=== PATIENT | female | born 1940 | race Caucasian/White ===

== ENCOUNTER → 2016-08-13 | Outpatient (CLI) | payer OTHER ==
[~2016-08-13] VITALS: Ht 170.2 cm; Wt 142.0 kg
[~2016-08-13] MED LIST: ALLERGY RELIEF10 M3 PO; ALLOPURINOL 30300 M1 PO; APAP500 PO; ASPIRIN81 M2 PO; CALTRATE PLUS1 EACH PO; CHLORTHALIDONE25 MG PO; CLARITIN10 MG PO; CLONIDINE HCL0.1 MG PO; DULERA 100 MCG/13 GM INH; LISINOPRIL20 MG PO; MOBIC15 MG PO; SIMVASTATIN10 MG PO; SINGULAIR 10 MG10 M1 PO; TRAMADOL 50 MG50 MG PO; VITAMIN C 250250 MG PO; VITAMIN D 5050000 I1 PO; VITAMINC500 PO
--- NOTE | ~2016-08-13 | S ---
[facility] [place] [address] SURGICAL PATH RPT PROCEDURE Name: SOFÍA LEE Room #: REG [facility].#: [id number] Admission: 08/13/16 Date of : 44 Discharge: Report #: [id number] Path Case #: [id number] PATHOLOGY REPORT COLLECTION DATE: 08/13/2016 RECEIVED DATE: 08/14/2016 SUBMITTING PHYS: Dr. Ruben Deng OTHER PHYS: Dr. Tyree Brown SPECIMEN(S) RECEIVED: A.Rectal sigmoid polyp bx B.Rectal ulcer bx * * * * * * * * * * * * FINAL DIAGNOSIS: A. Polyp, rectal sigmoid polyp, endoscopic biopsy: - Hyperplastic polyp. - Negative for dysplasia. B. Large intestine, rectal ulcer, endoscopic biopsy: - Reactive nonspecific changes with focal acute inflammation. - Negative for dysplasia or malignancy. COMMENT: Examination shows hyperplastic crypts, reactive surface epithelium, scattered rare foci of lamina propria fibrosis as well as mild acute inflammation. The findings may be suggestive of focal active colitis, focal active proctitis, acute diverticulitis, or a solitary rectal ulcer. Findings to suggest an inflammatory bowel disease are not identified. Clinical correlation is suggested. (IUV:csd; d/t: 08/15/2016) PATHOLOGIST: Erika Good M.D. REPORT ELECTRONICALLY SIGNED BY: Erika Good M.D. DATE/TIME: 08/15/2016 17:24 * * * * * * * * * * * * GROSS PATHOLOGY: A. Received in formalin labeled "Sofía Lee, rectal sigmoid polyp," are 2 segments of gonzales soft tissue measuring 0.5 x 0.2 x 0.2 cm in aggregate dimensions and ranging from 0.2 to 0.3 cm in maximum dimension. The specimen is submitted entirely in cassette A1. B. Received in formalin labeled "Sofía Lee, rectal ulcer," are 2 segments of gonzales soft tissue measuring 0.4 x 0.2 x 0.2 cm in aggregate dimensions and ranging from 0.1 to 0.3 cm in maximum dimension. The specimen is submitted entirely in cassette B1. (ADY; 08/14/2016) [address] [place] [address] SURGICAL PATH RPT PROCEDURE Name: SOFÍA LEE Room #: [facility]#: [id number] Admission: 08/13/16 Date of : 44 Discharge: Report #: [id number] Path Case #: [id number] CLINICAL HISTORY: Rectal bleeding INITIAL CPT CODE(S): A; 64017 B; 11365 Professional services performed by [facility] at [address] [place], [place] [address] Technical services performed by [facility] at [address] [place] [address], [facility] [address] [address]. [facility] [address] [address] PHONE: [phone] DIRECTOR: Patrick W. Nelly, M.D. * * * END OF REPORT * * *
--- NOTE | ~2016-08-13 | P ---
[facility] [place] [address] PROCEDURE REPORT Name: ROSASOFÍA Lyons Room #: REG [facility]#: [id number] Admission: 08/13/16 Attend Phys: Ruben Son Discharge: Date of : 44 Report #: [id number] THIS REPORT FOR: //name// CC: Ruben Brown MD DATE OF SERVICE: 08/13/2016 PROCEDURE PERFORMED: Colonoscopy with biopsies. HISTORY OF PRESENT ILLNESS: The patient is a 76-year-old female who had an episode of crampy abdominal pain associated with hematochezia on 07/24/2016. Apparently was hospitalized for 3 days, had a CT scan showing inflammation or colitis. I do not have a copy of any of these results. Her last colonoscopy was 20 years ago. There is no family history of colon cancer. She denies any further bleeding. Her bowel movements have been fairly normal lately recently. DESCRIPTION OF PROCEDURE: The risks and benefits of the procedure were explained to the patient, those risks including but not limited to bleeding, perforation, the risk of sedation. She understood these risks and gave informed consent. Sedation was given using propofol per anesthesia. Next, a digital rectal exam was initially performed, which was normal. Next, using a standard Fujinon colonoscope, the scope was placed in the patient's anus and advanced under direct vision to the right colon, at which point, an ileocolonic anastomosis was noted. This was well healed and widely patent. I was able to advance the scope into the ileum, which was normal. The scope was then slowly withdrawn. The remaining transverse and descending colon were normal. Multiple diverticula were noted in the sigmoid colon, no evidence of inflammation. Also noted in the sigmoid was a 4 mm sessile polyp. This was removed with cold forceps. In the rectum, there was a single small 3 mm ulcer. Biopsies were obtained. No other inflammation or ulcerations were noted. There was no bleeding. On retroflexion, small nonbleeding internal hemorrhoids were noted. The scope was then withdrawn and the procedure terminated. The patient tolerated the procedure well. IMPRESSION: 1. Sigmoid diverticulosis. 2. Small sigmoid colon polyp. 3. Surgical changes of right hemicolectomy noted. 4. Small ulceration in the rectum. No bleeding. 5. Nonbleeding internal hemorrhoids. RECOMMENDATIONS: 1. Await biopsy results. 2. If polyp is hyperplastic, consider repeat colonoscopy in 10 years; if [facility] [address] [place] [address] PROCEDURE REPORT Name: SOFÍA LEE Room #: REG [facility]#: [id number] Admission: 08/13/16 Attend Phys: Ruben Son Discharge: Date of : 44 Report #: [id number] adenomatous polyp, repeat colonoscopy in 5 years. 3. Etiology of recent GI bleed is unclear. If the patient had a colitis, this has now resolved, which could have been from infections or ischemic type of colitis. Would observe at this point. Thank you for allowing me to participate in her care. By: [id number] Ruben Deng MD /nt
== END ==
LOC: GI 09:19
DX: K63.5 Polyp of colon (principal); K62.6 Ulcer of anus and rectum; K57.30 Diverticulosis of large intestine without perforation or abscess without bleeding; K64.8 Other hemorrhoids; J45.909 Unspecified asthma, uncomplicated; I10 Essential (primary) hypertension; E78.00 Pure hypercholesterolemia, unspecified; M10.9 Gout, unspecified; Z90.710 Acquired absence of both cervix and uterus; Z98.890 Other specified postprocedural states
CPT/HCPCS: 62110; 62900